=== PATIENT | male | born 1940 | race Hispanic/Latino ===

== ENCOUNTER → 2018-01-15 | Outpatient (CLI) | payer MEDICARE ==
[~2018-01-15] MED LIST: ASPIRIN81 MG PO; BISOPROLOL FUMARATE PO; ISOSORBIDE MONO30 M1 PO; JALYN 0.5-0.41 EACH; OMEPRAZOLE20 MG PO; POTASSIUM CHLO20 ME1 PO; PRAVASTATIN SOD20 MG PO; VERAPAMIL ER120 MG PO
--- NOTE | 2018-01-15 14:55 | Diagnostic Imaging Report ---
PROCEDURE:US RETROPERITONEAL ( KIDNEY ). COMPARISON:Patients [facility], CT, CT ABDOMEN/PELVIS WOW, 10/28/2012, 11:30. INDICATIONS:RENAL CYST TECHNIQUE: Salazar-scale and color sonographic images of the bilateral kidneys and bladder where obtained in transverse and longitudinal planes. FINDINGS: RIGHT KIDNEY: 11.6 cm, cortex 1.8 cm Cysts: Several cysts are again noted in the right kidney: * 1.9 x 1.5 x 2.4 cm cystic, mostly anechoic, mildly lobulated partly exophytic lesion in the superolateral aspect, which contains a single thin nonvascular septation (previously measured 1.9 x 1.4 x 2.1 cm). * 1.5 x 1.0 1.5 cm cystic, anechoic lesion in the mid aspect at the renal sinus, likely representing a parapelvic cyst (not previously visualized). * 3.3 x 3.4 x 3.3 cm cystic, anechoic, mostly exophytic lesion in the mid medial aspect (previously measured 2.8 x 3.4 x 2.7 cm). Solid masses: None Stones: None Hydronephrosis: None Echogenicity: Normal LEFT KIDNEY: 11.2 cm, cortex 1.3 cm Cysts: Several cysts are again noted in the left kidney: * 1.8 x 1.5 x 1.7 cm cystic, mostly anechoic, partially exophytic lesion in the superior mid aspect, with questionable small, partially visualized nonvascular septation versus tiny wall calcification. This lesion was not seen on prior ultrasound. * 3.8 x 2.4 x 3.0 cm complex cystic lesion with curvilinear thin septations, some of which are partly calcified and no increased vascularity in the superomedial aspect (previously measured 3.5 x 2.3 x 1.8 cm). Solid masses: None Stones: None Hydronephrosis: None Echogenicity: Normal Bladder: No focal lesions. Bilateral ureteral jets identified. Prostate: 3.7 x 3.4 x 4.87 m (estimated volume 31.2 mL). Post TURP CONCLUSION: 1. Normal bilateral renal size and echogenicity. No hydronephrosis, stones, or obstruction. 2. Relatively stable complex cystic lesion with partly calcified septations in the superomedial left kidney. 3. Slight interval increase in size in mostly exophytic simple cyst in the mid medial right kidney. 4. 1.8 cm minimally complex cyst in the superior mid aspect of the left kidney, which was not seen on prior exam. 5. Stable mildly complex cyst in the superolateral right kidney. 6. New 1.5 cm right parapelvic cyst. Bruce Daniels M.D. Dictated by: Bruce Daniels M.D. on 01/15/2018 at 14:58 Electronically approved by: Bruce Daniels M.D. on 01/15/2018 at 14:58
== END ==
LOC: US 11:31
PROVIDERS: ATTEND Urology
DX: N28.1 Cyst of kidney, acquired (principal)
CPT/HCPCS: 76770